=== PATIENT | male | born 1960 | race African-American/Black ===

== ENCOUNTER 2017-12-12 18:37 | Emergency (ER) | payer OTHER ==
--- NOTE | 2017-12-12 19:42 | RADIOLOGY REPORT (SQ) ---
EXAM DESCRIPTION: FINGER LEFT COMPLETED DATE/TIME: 12/12/2017 7:31 pm REASON FOR STUDY: finger laceration COMPARISON: None. NUMBER OF VIEWS: Three views. TECHNIQUE: AP, lateral, and oblique images acquired of the left second finger. LIMITATIONS: None. FINDINGS: MINERALIZATION: Normal. BONES: No acute fracture or dislocation. No worrisome bone lesions. SOFT TISSUES: No soft tissue swelling. No foreign body. OTHER: No other significant finding. IMPRESSION: NO RADIOGRAPHIC EVIDENCE OF ACUTE INJURY. COMMENT: SITE OF TRAUMA/COMPLAINT MARKED/STAMP COMPLETED: YES. TECHNICAL DOCUMENTATION: JOB ID: [id number] [employer]- All Rights Reserved Reading location - IP/workstation name: [email or web address]
[2017-12-12] MEDS ORDERED: DIPH/PERTUSS(ACELL)/TETANUS VAC/PF 0.5 ML SYR (>=10YO) IM ONE (20:13)
--- NOTE | 2017-12-12 20:14 | ER Document Report ---
ED Wound - General Chief Complaint: Laceration Stated Complaint: HAND LACERATION Time Seen by Provider: 12/12/17 19:09 Mode of Arrival: Ambulatory Information source: Patient Notes: Patient is a 57-year-old male who presents to the ER today for laceration to his left index finger at work prior to arrival after he was using a slicer to slice squash. Patient states that he accidentally got his finger in the slicer. Patient does not know when his last tetanus was. Patient admits that bleeding is only controlled with bandaging today. He denies any numbness or tingling, has full range of motion of the finger. TRAVEL OUTSIDE OF THE [place] IN LAST 30 DAYS: No - Related Data Allergies/Adverse Reactions: lisinopril [Lisinopril] Allergy (Verified 11/24/11 03:06) Past Medical History - General Information source: Patient - Social History Smoking Status: Unknown if Ever Smoked Family History: Reviewed & Not Pertinent - Past Medical History Cardiac Medical History: Reports: Hx Hypertension Review of Systems - Review of Systems Constitutional: No symptoms reported EENT: No symptoms reported Cardiovascular: No symptoms reported Respiratory: No symptoms reported Gastrointestinal: No symptoms reported Genitourinary: No symptoms reported Male Genitourinary: No symptoms reported Musculoskeletal: No symptoms reported Skin: See HPI Hematologic/Lymphatic: No symptoms reported Neurological/Psychological: No symptoms reported Physical Exam - Vital signs Vitals: Temp Pulse Resp BP Pulse Ox 99.1 F 105 H 20 153/85 H 90 L 12/12/17 18:45 12/12/17 18:45 12/12/17 18:45 12/12/17 18:45 12/12/17 18:45 - Notes Notes: PHYSICAL EXAMINATION: GENERAL: Well-appearing and in no acute distress. HEAD: Atraumatic, normocephalic. EYES: Pupils equal round and reactive to light, extraocular movements intact, sclera anicteric, conjunctiva are normal. NECK: Normal range of motion, supple without lymphadenopathy LUNGS: CTAB and equal. No wheezes rales or rhonchi. HEART: Regular rate and rhythm without murmurs EXTREMITIES: Normal range of motion, no pitting edema. No cyanosis. NEUROLOGICAL: Cranial nerves grossly intact. Normal sensory/motor exams. PSYCH: Normal mood, normal affect. SKIN: Warm, Dry, normal turgor, avulsion/shave laceration to the center of the nailbed of left index finger, sparing the base of the nailbed and the tip of the nail, sides of the nail, into tissue beneath the nailbed, minimal bleeding Course - Re-evaluation Re-evalutation: 12/12/17 23:59 X-ray negative for any acute pathology except for laceration. There is nothing to suture today as part of the nail and skin, tissue underneath the nail were just shaved off by the slicer, bleeding completely stopped after pressure dressing was kept on for approximately 20 minutes. Patient will be placed on antibiotic, was given tetanus today and advised to keep bandaged and clean, following up with his primary care provider. - Vital Signs Vital signs: Temp Pulse Resp BP Pulse Ox 98.3 F 96 20 171/96 H 97 12/12/17 20:32 12/12/17 20:32 12/12/17 18:45 12/12/17 20:32 12/12/17 20:32 Discharge - Discharge Clinical Impression: Nail avulsion, finger Qualifiers: Encounter type: initial encounter Qualified Code(s): S61.309A - Unspecified open wound of unspecified finger with damage to nail, initial encounter Condition: Stable Disposition: HOME, SELF-CARE Instructions: Non-Sutured Laceration ([facility]), Prophylactic Antibiotic ([facility]), Tetanus Immunization Given ([facility]) Additional Instructions: Return immediately for any new or worsening symptoms. Follow up with primary care provider, call tomorrow to make followup appointment. Please change the bandage at least once if not twice daily. Prescriptions: Cephalexin [Cephalexin 250 MG Tablet] 1 tab PO BID #10 tablet
[2017-12-12 20:33] VITALS: BP 171/96
== END 2017-12-12 20:42 | disposition home or self-care (01) ==
LOC: ER 18:37
DX: S61.211A Laceration without foreign body of left index finger without damage to nail, initial encounter (principal); W27.4XXA Contact with kitchen utensil, initial encounter; Z23 Encounter for immunization
CPT/HCPCS: 90471; 90715; 99283

== ENCOUNTER 2018-01-16 12:33 | Emergency (ER) | payer OTHER ==
--- NOTE | 2018-01-16 13:04 | ER Document Report ---
ED Skin Rash/Insect Bite/Abscs - General Chief Complaint: Abscess Stated Complaint: SWOLLEN FACE Time Seen by Provider: 01/16/18 13:04 Mode of Arrival: Ambulatory Information source: Patient Notes: 57-year-old male with a history of a cyst in front of his left ear developed increased swelling pain over the past 4 days. No fever or chills. No history of MRSA. TRAVEL OUTSIDE OF THE [place] IN LAST 30 DAYS: No - Related Data Allergies/Adverse Reactions: lisinopril [Lisinopril] Allergy (Verified 01/16/18 12:34) Past Medical History - General Information source: Patient - Social History Smoking Status: Never Smoker Chew tobacco use (# tins/day): No Drug Abuse: None Lives with: Family Family History: Reviewed & Not Pertinent Patient has suicidal ideation: No Patient has homicidal ideation: No - Past Medical History Cardiac Medical History: Reports: Hx Hypertension Renal/ Medical History: Denies: Hx Peritoneal Dialysis Surgical Hx: Negative Review of Systems - Review of Systems Constitutional: No symptoms reported EENT: No symptoms reported Cardiovascular: No symptoms reported Respiratory: No symptoms reported Gastrointestinal: No symptoms reported Genitourinary: No symptoms reported Male Genitourinary: No symptoms reported Musculoskeletal: No symptoms reported Skin: See HPI Hematologic/Lymphatic: No symptoms reported Neurological/Psychological: No symptoms reported Physical Exam - Vital signs Vitals: Temp Pulse Resp BP Pulse Ox 98.7 F 110 H 20 172/84 H 98 01/16/18 12:38 01/16/18 12:38 01/16/18 12:38 01/16/18 12:38 01/16/18 12:38 Interpretation: Normal - General General appearance: Appears well, Alert - HEENT Head: Normocephalic, Atraumatic Eyes: Normal Pupils: PERRL - Respiratory Respiratory status: No respiratory distress Chest status: Nontender Breath sounds: Normal Chest palpation: Normal - Cardiovascular Rhythm: Regular Heart sounds: Normal auscultation Murmur: No - Extremities General upper extremity: Normal inspection, Nontender, Normal color, Normal ROM , Normal temperature General lower extremity: Normal inspection, Nontender, Normal color, Normal ROM , Normal temperature, Normal weight bearing. No: Brielle's sign - Neurological Neuro grossly intact: Yes Cognition: Normal Orientation: AAOx4 Primo Coma Scale Eye Opening: Spontaneous Thorpe Coma Scale Verbal: Oriented Thorpe Coma Scale Motor: Obeys Commands Primo Coma Scale Total: 15 Speech: Normal Motor strength normal: LUE, RUE, LLE, RLE Sensory: Normal - Psychological Associated symptoms: Normal affect, Normal mood - Skin Skin Temperature: Warm Skin Moisture: Dry Skin Color: Normal Skin irregularity: Abscess - Left preauricular soft tissue, 1 cm fluctuance Course - Vital Signs Vital signs: Temp Pulse Resp BP Pulse Ox 98.7 F 90 16 161/85 H 99 01/16/18 12:38 01/16/18 14:00 01/16/18 14:00 01/16/18 14:00 01/16/18 14:00 Procedures - Incision and Drainage Left Face Time completed: 13:30 Type: Simple Anesthetic type: 1% Lidocaine mL's of anesthetic: 2 Blade size: 11 I&D procedure: Betadine prep applied, Other - Quarter inch packing in the evacuated abscess Incision Method: Incision made by scalpel Amount/type of drainage: large blood and sebaceous exudate Discharge - Discharge Clinical Impression: I and D facial abscess Condition: Good Disposition: HOME, SELF-CARE Instructions: Abscess ([facility]), Acetaminophen, Use of Rjve-Tno-Rjgongm Ibuprofen ( [facility]), Post Incision and Drainage, Trimethoprim-Sulfa ([facility]), Warm Packs ([facility]) Additional Instructions: warm compress Tylenol up to 4000 mg per day for pain [id number]-[id number] Motrin for pain Keep the packing in for 2 days Wash with soap and water after the packing is removed in the shower in 2 days Septra for 1 week Return to the emergency room for any increased increased pain swelling fever Prescriptions: Sulfamethoxazole/Trimethoprim [Sulfamethoxazole-Tmp Ds Tablet] 1 each PO BID # 14 tablet
[2018-01-16] MEDS ORDERED: IBUPROFEN 400 MG TABLET PO ONE (13:06)
[2018-01-16] MEDS ORDERED: ACETAMINOPHEN 325 MG TABLET PO ONE (13:06)
[2018-01-16] MEDS ORDERED: SULFAMETHOXAZOLE/TRIMETHOPRIM 800-160 MG TABLET PO ONE (13:06)
[2018-01-16 14:18] VITALS: BP 161/85
== END 2018-01-16 14:05 | disposition home or self-care (01) ==
LOC: ER 12:33
DX: L02.01 Cutaneous abscess of face (principal); I10 Essential (primary) hypertension; Z88.8 Allergy status to other drugs, medicaments and biological substances
CPT/HCPCS: 99283; 10060; J3490

== ENCOUNTER 2018-10-06 10:05 | Emergency (ER) | payer OTHER ==
--- NOTE | 2018-10-06 10:25 | ER Document Report ---
ED Medical Screen (RME) - General Chief Complaint: Shortness Of Breath Stated Complaint: ELEVATED HEART RATE/SHORT OF BREATH Time Seen by Provider: 10/06/18 10:20 TRAVEL OUTSIDE OF THE [place] IN LAST 30 DAYS: No - HPI Notes: 10/06/18 10:23 Patient is a 58-year-old male with a history of hypertension who presents emergency department complaining of intermittent shortness of breath over the past month that is worse when he is ambulating. Patient states that he is still eating and drinking without difficulty. He is urinating normally and having normal bowel movements. He was seen at the [facility] today that wanted him to have an evaluation due to having elevated blood pressure and heart rate around 110. Patient states he also has puffiness around his left eye which has been present for the past 1-2 weeks. Denies any prolonged immobilization, distance travel, recent surgery/trauma, personal cancer history, hormone use, or previous DVT/PE. Denies STALLWORTH, fever, neck pain, URI, CP, Abd pain, or rash. I have treated and performed a rapid initial assessment of this patient. A comprehensive ED assessment and evaluation of the patient, analysis of test results and completion of medical decision making process will be conducted by additional ED providers. PHYSICAL EXAMINATION: GENERAL: Well-appearing, well-nourished and in no acute distress. A&Ox4. Answers questions appropriately. LUNGS: Breath sounds clear to auscultation bilaterally and equal. No wheezes rales or rhonchi. HEART: Regular rate and rhythm without murmurs, rubs, gallops. Extremities: No cyanosis, clubbing, or edema b/l. No lower extremity asymmetry. Brielle negative bilaterally. NEUROLOGICAL: Normal speech, normal gait. PSYCH: Normal mood, normal affect. - Related Data Allergies/Adverse Reactions: lisinopril [Lisinopril] Allergy (Verified 01/16/18 12:34) Past Medical History - Past Medical History Cardiac Medical History: Reports: Hx Hypertension Renal/ Medical History: Denies: Hx Peritoneal Dialysis Physical Exam - Vital signs Vitals: Temp Pulse Resp BP Pulse Ox 98.0 F 109 H 20 159/85 H 98 10/06/18 10:17 10/06/18 10:17 10/06/18 10:17 10/06/18 10:17 10/06/18 10:17 Course - Vital Signs Vital signs: Temp Pulse Resp BP Pulse Ox 98.0 F 109 H 20 159/85 H 98 10/06/18 10:17 10/06/18 10:17 10/06/18 10:17 10/06/18 10:17 10/06/18 10:17
--- NOTE | 2018-10-06 10:48 | RADIOLOGY REPORT (SQ) ---
EXAM DESCRIPTION: CHEST SINGLE VIEW COMPLETED DATE/TIME: 10/06/2018 10:34 am REASON FOR STUDY: SOB COMPARISON: None. EXAM PARAMETERS: NUMBER OF VIEWS: One view. TECHNIQUE: Single frontal radiographic view of the chest acquired. RADIATION DOSE: NA LIMITATIONS: None. FINDINGS: LUNGS AND PLEURA: No opacities, masses or pneumothorax. No pleural effusion. MEDIASTINUM AND HILAR STRUCTURES: No masses. Contour normal. HEART AND VASCULAR STRUCTURES: Heart normal in size. Normal vasculature. BONES: No acute findings. HARDWARE: None in the chest. OTHER: Nipple shadow projected over the left lower lung zone. IMPRESSION: NO ACUTE RADIOGRAPHIC FINDING IN THE CHEST. TECHNICAL DOCUMENTATION: JOB ID: [id number] [employer]- All Rights Reserved Reading location - IP/workstation name: [email or web address]
[2018-10-06 10:58] LABS: ABSOLUTE BASOPHILS # (AUTO) 0.1 10^3/uL (0.0-0.2); ABSOLUTE LYMPHOCYTES (AUTO) 1.7 10^3/uL (0.5-4.7); ABSOLUTE MONOCYTES (AUTO) 0.8 10^3/uL (0.1-1.4); ABSOLUTE NEUT (AUTO) 7.1 10^3/uL (1.7-8.2); BASOPHILS % (AUTO) 0.8 % (0-2); EOSINOPHILS % (AUTO) 0.2 % (0-6); HEMATOCRIT 47.7 % (37.9-51.0); HEMOGLOBIN 15.8 g/dL (13.5-17.0); LYMPHOCYTES % (AUTO) 17.3 % (13-45); MEAN CORPUSCULAR HEMOGLOBIN 29.8 pg (27.0-33.4); MEAN CORPUSCULAR VOLUME 90 fl (80-97); MONOCYTES % (AUTO) 7.8 % (3-13); PLATELET COUNT 283 10^3/uL (150-450); RED BLOOD COUNT 5.29 10^6/uL (4.35-5.55); RED CELL DISTRIBUTION WIDTH 14.2 % (11.5-14.0); SEGMENTED NEUTROPHILS % (AUTO) 73.9 % (42-78); TOTAL CELLS COUNTED % (AUTO) 100 %; WHITE BLOOD COUNT 9.6 10^3/uL (4.0-10.5)
--- NOTE | 2018-10-06 11:07 | EKG REPORT ---
SEVERITY:- BORDERLINE ECG - SINUS TACHYCARDIA BORDERLINE INFERIOR Q WAVES BORDERLINE T ABNORMALITIES, LATERAL LEADS : Confirmed by: August Ruggiero 06-Oct-2018 11:07:17
[2018-10-06 11:19] LABS: ALANINE AMINOTRANSFERASE 27 U/L (21-72); ALBUMIN 4.9 g/dL (3.5-5.0); ALKALINE PHOSPHATASE 84 U/L (38-126); ANION GAP 11 (5-19); ASPARTATE AMINO TRANSFERASE 34 U/L (17-59); BILIRUBIN,DIRECT 0.4 mg/dL (0.0-0.4); BILIRUBIN,TOTAL 0.6 mg/dL (0.2-1.3); BLOOD UREA NITROGEN 9 mg/dL (7-20); CALCIUM 10.5 mg/dL (8.4-10.2); CARBON DIOXIDE 23 mmol/L (22-30); CHLORIDE 105 mmol/L (98-107); GLUCOSE 100 mg/dL (75-110); PHOSPHORUS 3.5 mg/dL (2.5-4.5); POTASSIUM 3.7 mmol/L (3.6-5.0); SODIUM 138.6 mmol/L (137-145); TOTAL PROTEIN 7.9 g/dL (6.3-8.2)
[2018-10-06 11:32] LABS: NT PRO BNP 41 pg/mL (5-900); TROPONIN I < 0.012 ng/mL
[2018-10-06] MEDS ORDERED: NORMAL SALINE 1000 ML 1,000 ML IV ONE (12:54)
[2018-10-06 15:19] VITALS: BP 158/85
--- NOTE | 2018-10-06 17:54 | ER Document Report ---
Entered by YSABEL BARROS SCRIBE 10/06/18 [id number] Acting as scribe for:JESSICA MARRERO DO ED General - General Chief Complaint: Shortness Of Breath Stated Complaint: ELEVATED HEART RATE/SHORT OF BREATH Time Seen by Provider: 10/06/18 10:20 [facility] Care Provider: [facility] [[facility]] - Follow up as needed Information source: Patient Notes: 58-year-old male that was sent in from the [place] [facility] in regards to periorbital edema along with exertional dyspnea. Patient states he was going to the [facility] today for a blood pressure recheck when they noticed this eye swelling. Patient states that he has noticed this eye swelling for the last x3 weeks. Patient has a history of angioedema several years ago but he was on lisinopril at that time which he is not currently taking. Patient states he has noticed that his shortness of breath seems to be on exertion. Patient denies any difficulty swallowing, leg swelling, chest pain, or pain around his eyes. TRAVEL OUTSIDE OF THE [place] IN LAST 30 DAYS: No - Related Data Allergies/Adverse Reactions: lisinopril [Lisinopril] Allergy (Verified 01/16/18 12:34) Past Medical History - General Information source: Patient - Social History Smoking Status: Current Every Day Smoker Cigarette use (# per day): Yes Chew tobacco use (# tins/day): No Frequency of alcohol use: Heavy - daily x3-4 beers Drug Abuse: None Lives with: Family Family History: Reviewed & Not Pertinent Patient has suicidal ideation: No Patient has homicidal ideation: No - Past Medical History Cardiac Medical History: Reports: Hx Hypertension Review of Systems - Review of Systems Constitutional: No symptoms reported EENT: See HPI, Other - eye swelling Cardiovascular: denies: Chest pain Respiratory: See HPI, Short of breath Gastrointestinal: No symptoms reported Genitourinary: No symptoms reported Male Genitourinary: No symptoms reported Musculoskeletal: denies: Leg swelling Skin: No symptoms reported Hematologic/Lymphatic: No symptoms reported Neurological/Psychological: No symptoms reported -: Yes All other systems reviewed and negative Physical Exam - Vital signs Vitals: Temp Pulse Resp BP Pulse Ox 98.0 F 109 H 20 159/85 H 98 10/06/18 10:17 10/06/18 10:17 10/06/18 10:17 10/06/18 10:17 10/06/18 10:17 - Notes Notes: PHYSICAL EXAM Bedside nurse monitoring interpretation: NSR with a rate of 109 per my interpretation. GENERAL: Alert, interacts well. No acute distress. HEAD: Normocephalic, atraumatic. EYES: Pupils equal, round, and reactive to light. Extraocular movements intact. Small amount of periorbital edema without erythema or fluctuance. ENT: Oral mucosa moist, tongue midline. No angioedema. NECK: Full range of motion. Supple. Trachea midline. LUNGS: Clear to auscultation bilaterally, no wheezes, rales, or rhonchi. No respiratory distress. HEART: Tachycardic, regular rhythm. No murmurs, gallops, or rubs. ABDOMEN: Soft, non-tender. Non-distended. Bowel sounds present in all 4 quadrants. No guarding, rigidity, or rebound. EXTREMITIES: Moves all 4 extremities spontaneously. No edema, radial and dorsalis pedis pulses 2/4 bilaterally. No cyanosis. NEUROLOGICAL: Alert and oriented x3. Normal speech. PSYCH: Normal affect, normal mood. SKIN: Warm and dry. Course - Re-evaluation Re-evalutation: 10/06/18 14:54 CBC unremarkable, d-dimer negative, CMP unremarkable with the exception of calcium which is only slightly elevated at 10.5, troponin negative x2, it went from completely undetectable at 0.0122 only minimally change at 0.013 which is still negative. ProBNP unremarkable at 41, TSH normal at 0.62. Chest x-ray shows no acute process. Patient swelling around his eyes he states has been unchanged for the past 3 weeks. It is very soft, there is no induration, there is no evidence of involvement of the lips, tongue or airway. I do not think this is angioedema as it only around his eyes rather than the airway. I also do not think it is angioedema because is been going on for so long. With his BUN and creatinine being completely normal despite the fact that he has not yet urinated for me in the emergency department I do not think patient has nephrotic syndrome causing the periorbital edema. I did discuss these laboratory findings and my conclusions with Dr. Mclain his primary care physician at the [place]. Dr. Mclain agrees to follow-up with the patient as an outpatient, she will put an order [facility] if this improves some of his periorbital edema, she will also arrange cardiology follow-up as an outpatient for exertional dyspnea. Patient has had mild persistent tachycardia while he has been here but again his d-dimer was normal. Patient's tachycardia worsens when somebody walks into the room and improves when they leave, the lowest his heart rate has gotten has been to 102. - Vital Signs Vital signs: Temp Pulse Resp BP Pulse Ox 98.0 F 109 H 20 158/85 H 96 10/06/18 10:17 10/06/18 10:17 10/06/18 15:01 10/06/18 15:01 10/06/18 15:01 - Laboratory Result Diagrams: 10/06/18 10:40 10/06/18 10:40 Laboratory results interpreted by me: 10/06/18 10/06/18 10:40 10:40 RDW 14.2 H Calcium 10.5 H - EKG Interpretation by Me Additional EKG results interpreted by me: 10/06/18 14:59 EKG shows sinus tachycardia at a rate of 109, no ST segment elevations or depressions, there are isolated nonspecific T wave inversions in aVL L T wave inversions in aVL, slight ST segment depression in V6, no elevations, no contiguous changes, good R wave progression, left ventricular hypertrophy per my interpretation. Discharge - Discharge Clinical Impression: Dyspnea on exertion, Sinus tachycardia, Periorbital edema Condition: Stable Disposition: HOME, SELF-CARE Additional Instructions: Today we did not find any signs of a heart attack. You will need to follow-up with [facility] as an outpatient for a stress test to further figure out why you are short of breath when you walk around. We did not see any signs of a blood clot to your lungs. I have discussed this with Dr. Mclain and she will get you set up with a log chi[facility] for outpatient follow-up. She would also like you to start a daily antiallergy medication such as Claritin. She is going to add this to your order so it will be delivered to you in the mail. Until it shows up in the mail you may buy this [id number]. Please return if you develop any swelling to your mouth, lips, tongue, difficulty breathing, chest pain or any new or concerning symptoms. Referrals: [facility] [Primary Care Provider] - Follow up as needed I personally performed the services described in the documentation, reviewed and edited the documentation which was dictated to the scribe in my presence, and it accurately records my words and actions.
== END 2018-10-06 15:28 | disposition home or self-care (01) ==
LOC: ER 10:05
DX: R06.09 Other forms of dyspnea (principal); R00.0 Tachycardia, unspecified; I10 Essential (primary) hypertension; R60.9 Edema, unspecified; F17.210 Nicotine dependence, cigarettes, uncomplicated
CPT/HCPCS: 93005; 99285; 96360; 96361; 36415; 83735; 84100; 84443; 85025; 80053; 84484; 85379; 83880; 71045; 93010; J7030

== ENCOUNTER 2019-02-10 14:47 | Inpatient (IN) | payer OTHER ==
[2019-02-10] MEDS ORDERED: MORPHINE SULFATE 10 MG/ML INJ IV ONE (15:26)
[2019-02-10] MEDS ORDERED: ONDANSETRON HCL INJ/PF 4 MG/2 ML SDV IV ONE (15:26)
--- NOTE | 2019-02-10 15:30 | RADIOLOGY REPORT (SQ) ---
EXAM DESCRIPTION: TIBIA FIBULA RIGHT COMPLETED DATE/TIME: 02/10/2019 3:17 pm REASON FOR STUDY: unable to bear weight COMPARISON: None. NUMBER OF VIEWS: Two views. TECHNIQUE: Two radiographic images acquired of the right tibia and fibula to include the knee and an kle in at least one projection. LIMITATIONS: None. FINDINGS: MINERALIZATION: Normal. BONES: Spiral fractures of the distal tibia and distal fibula. SOFT TISSUES: No obvious swelling or foreign body. OTHER: No other significant finding. IMPRESSION: Distal tibial and fibular fractures. TECHNICAL DOCUMENTATION: JOB ID: [id number] [employer]- All Rights Reserved Reading location - IP/workstation name: [email or web address]
[2019-02-10] MEDS ORDERED: ONDANSETRON HCL INJ/PF 4 MG/2 ML SDV IV PRN (16:18)
--- NOTE | 2019-02-10 16:18 | PDOC H&P ---
History of Present Illness Admission Date/PCP: [facility] History of Present Illness: ROSANA MATSON is a 59 year old plaque male patient with past medical history of hypertension and chronic back pain presented after he involved accidental fall when his right leg stepped into a hole. Patient is in excruciating pain. His plain x-ray reported as undisplaced closed distal tibial and fibular fracture. No labs to review. Patient reported she drinks 3 to 4 cans of beer on daily basis. Is everyday smoker. He does not have any fever chills chest pain palpitation or diaphoresis. Does not have any dizziness blurry of vision or seizure activity. Dr. Garcia has been consulted by the ER attending. Past Medical History Cardiac Medical History: Reports: Hypertension Social History Smoking Status: Current Every Day Smoker Frequency of Alcohol Use: None Hx Recreational Drug Use: No - Advance Directive Resuscitation Status: Full Code Family History Family History: Reviewed & Not Pertinent Parental Family History Reviewed: Yes Children Family History Reviewed: Yes Sibling(s) Family History Reviewed.: Yes Medication/Allergy Home Medications: Amlodipine Besylate [Norvasc 5 mg Tablet] 5 mg PO DAILY 11/24/11 Allopurinol [Zyloprim 300 mg Tablet] 300 mg PO DAILY 01/16/18 Cholecalciferol (Vitamin D3) [Cholecalciferol] 1 gm MC BID 01/16/18 Colchicine [Colchicine 0.6 mg Tablet] 0.6 mg PO DAILY 01/16/18 Cyclobenzaprine HCl 10 mg PO TID PRN 01/16/18 Gabapentin 300 mg PO BID 01/16/18 Hydralazine HCl 50 mg PO TID 01/16/18 Melatonin 5 mg PO PRN PRN 01/16/18 Methocarbamol 500 mg PO TID PRN 01/16/18 Naproxen 500 mg PO DAILY 01/16/18 Sulfamethoxazole/Trimethoprim [Sulfamethoxazole-Tmp Ds Tablet] 1 each PO BID #14 tablet 01/16/18 Allergies/Adverse Reactions: lisinopril [Lisinopril] Allergy (Verified 01/16/18 12:34) Review of Systems Constitutional: ABSENT: chills, fever(s), headache(s), weight gain, weight loss Eyes: ABSENT: visual disturbances Ears: ABSENT: hearing changes Cardiovascular: ABSENT: chest pain, dyspnea on exertion, edema, orthropnea, palpitations Respiratory: ABSENT: cough, hemoptysis Gastrointestinal: ABSENT: abdominal pain, constipation, diarrhea, hematemesis, hematochezia, nausea, vomiting Genitourinary: ABSENT: dysuria, hematuria Musculoskeletal: PRESENT: other - Excruciating right leg pain Integumentary: ABSENT: rash, wounds Neurological: ABSENT: abnormal gait, abnormal speech, confusion, dizziness, focal weakness, syncope Psychiatric: ABSENT: anxiety, depression, homidical ideation, suicidal ideation Endocrine: ABSENT: cold intolerance, heat intolerance, polydipsia, polyuria Hematologic/Lymphatic: ABSENT: easy bleeding, easy bruising Physical Exam Vital Signs: Temp Pulse Resp BP Pulse Ox 97.7 F 73 20 136/78 H 100 02/10/19 15:16 02/10/19 15:16 02/10/19 15:16 02/10/19 15:16 02/10/19 15:16 Intake & Output 02/09/19 02/10/19 02/11/19 06:59 06:59 06:59 Weight 77.111 kg General appearance: PRESENT: mild distress Head exam: PRESENT: atraumatic Mouth exam: PRESENT: moist Neck exam: ABSENT: carotid bruit, JVD, lymphadenopathy, thyromegaly Respiratory exam: PRESENT: clear to auscultation edmond. ABSENT: rales, rhonchi, wheezes Cardiovascular exam: PRESENT: RRR. ABSENT: diastolic murmur, rubs, systolic murmur GI/Abdominal exam: PRESENT: normal bowel sounds, soft. ABSENT: distended, guarding, mass, organolmegaly, rebound, tenderness Neurological exam: PRESENT: alert, awake, oriented to person, oriented to place Results Impressions: Tibia/Fibula X-Ray 02/10/19 15:04 IMPRESSION: Distal tibial and fibular fractures. Assessment and Plan - Diagnosis (1) Right tibia and fibular fracture Is this a current diagnosis for this admission?: Yes Plan: Following mechanical fall. Dr. Garcia has been consulted. I will manage his pain with IV morphine sulfate (2) Hypertension Qualifiers: Hypertension type: essential hypertension Qualified Code(s): I10 - Essential (primary) hypertension Is this a current diagnosis for this admission?: Yes Plan: Reportedly patient has allergy to lisinopril. We will start him on metoprolol and hydrochlorothiazide. - Inpatient Certification Medical Necessity: Need for Pain Control, Risk of Complication if Not Cared For in Hospital
[2019-02-10] MEDS ORDERED: LORAZEPAM INJ 2 MG/1 ML VIAL IV PRN (16:25)
--- NOTE | 2019-02-10 16:25 | RADIOLOGY REPORT (SQ) ---
EXAM DESCRIPTION: CHEST SINGLE VIEW COMPLETED DATE/TIME: 02/10/2019 4:00 pm REASON FOR STUDY: preop COMPARISON: 10/06/2018. EXAM PARAMETERS: NUMBER OF VIEWS: One view. TECHNIQUE: Single frontal radiographic view of the chest acquired. RADIATION DOSE: NA LIMITATIONS: None. FINDINGS: LUNGS AND PLEURA: No opacities, masses or pneumothorax. No pleural effusion. MEDIASTINUM AND HILAR STRUCTURES: No masses. Contour normal. HEART AND VASCULAR STRUCTURES: Heart normal in size. Normal vasculature. BONES: No acute findings. HARDWARE: None in the chest. OTHER: No other significant finding. IMPRESSION: NO ACUTE RADIOGRAPHIC FINDING IN THE CHEST. TECHNICAL DOCUMENTATION: JOB ID: [id number] [employer]- All Rights Reserved Reading location - IP/workstation name: [email or web address]
--- NOTE | 2019-02-10 16:26 | RADIOLOGY REPORT (SQ) ---
EXAM DESCRIPTION: KNEE RIGHT 2 VIEWS COMPLETED DATE/TIME: 02/10/2019 4:00 pm REASON FOR STUDY: fall pain COMPARISON: None. NUMBER OF VIEWS: Two views. TECHNIQUE: AP and lateral radiographic images acquired of the right knee. LIMITATIONS: None. FINDINGS: MINERALIZATION: Normal. BONES: Comminuted oblique fracture of the proximal fibula. No worrisome bone lesions. JOINT: No effusion. Mild medial joint space narrowing with small osteophytes. SOFT TISSUES: No soft tissue swelling. No radio-opaque foreign body. OTHER: No other significant finding. IMPRESSION: COMMINUTED OBLIQUE FRACTURE OF THE PROXIMAL FIBULA. TECHNICAL DOCUMENTATION: JOB ID: [id number] [employer]- All Rights Reserved Reading location - IP/workstation name: [email or web address]
[2019-02-10 16:49] LABS: ABSOLUTE BASOPHILS # (AUTO) 0.1 10^3/uL (0.0-0.2); ABSOLUTE EOSINOPHILS # (AUTO) 0.1 10^3/uL (0.0-0.6); ABSOLUTE LYMPHOCYTES (AUTO) 1.4 10^3/uL (0.5-4.7); ABSOLUTE MONOCYTES (AUTO) 0.7 10^3/uL (0.1-1.4); ABSOLUTE NEUT (AUTO) 8.5 10^3/uL (1.7-8.2); BASOPHILS % (AUTO) 0.6 % (0-2); EOSINOPHILS % (AUTO) 1.4 % (0-6); HEMATOCRIT 43.4 % (37.9-51.0); HEMOGLOBIN 14.2 g/dL (13.5-17.0); LYMPHOCYTES % (AUTO) 12.8 % (13-45); MEAN CORPUSCULAR HEMOGLOBIN 29.7 pg (27.0-33.4); MEAN CORPUSCULAR HGB CONC 32.8 g/dL (32.0-36.0); MEAN CORPUSCULAR VOLUME 90 fl (80-97); MONOCYTES % (AUTO) 6.8 % (3-13); PLATELET COUNT 210 10^3/uL (150-450); RED CELL DISTRIBUTION WIDTH 14.3 % (11.5-14.0); SEGMENTED NEUTROPHILS % (AUTO) 78.4 % (42-78); TOTAL CELLS COUNTED % (AUTO) 100 %; WHITE BLOOD COUNT 10.9 10^3/uL (4.0-10.5)
[2019-02-10 17:02] LABS: INTERNATIONAL RATION (INR) 0.95; PROTHROMBIN TIME 12.7 SEC (11.4-15.4)
[2019-02-10 17:13] LABS: ALBUMIN 4.4 g/dL (3.5-5.0); ALKALINE PHOSPHATASE 60 U/L (38-126); ANION GAP 16 (5-19); ASPARTATE AMINO TRANSFERASE 33 U/L (17-59); BILIRUBIN,DIRECT 0.4 mg/dL (0.0-0.4); BILIRUBIN,TOTAL 0.6 mg/dL (0.2-1.3); BLOOD UREA NITROGEN 4 mg/dL (7-20); CALCIUM 9.7 mg/dL (8.4-10.2); CARBON DIOXIDE 21 mmol/L (22-30); CHLORIDE 99 mmol/L (98-107); GLUCOSE 101 mg/dL (75-110); POTASSIUM 3.6 mmol/L (3.6-5.0)
[2019-02-10 17:35] LABS: PARTIAL THROMBOPLASTIN TIME 20.2 SEC (23.5-35.8)
[2019-02-10] MEDS ORDERED: HYDROMORPHONE HCL INJ/PF 2 MG/ML AMPULE IV ONE (19:00)
[2019-02-10] MEDS ORDERED: NORMAL SALINE 1000 ML 1,000 ML IV ONE (19:01)
[2019-02-10] MEDS: ENOXAPARIN SODIUM INJ 40 MG/0.4 ML DISP.SYRIN SUBCUT SCH (19:43)
[2019-02-10] MEDS: MORPHINE SULFATE 10 MG/ML INJ IV PRN (21:18)
[2019-02-10] MEDS: FAMOTIDINE 20 MG TABLET PO SCH (23:39)
[2019-02-11] MEDS: RINGERS SOLUTION,LACTATED 1,000 ML IV PRN ×2 (02:17→18:33)
[2019-02-11] MEDS: MORPHINE SULFATE 10 MG/ML INJ IV PRN ×2 (02:19→05:56)
[2019-02-11] MEDS ORDERED: LABETALOL HCL INJ 20 MG/4 ML DISP.SYRIN IV PRN (06:25)
[2019-02-11] MEDS ORDERED: HYDROMORPHONE HCL INJ/PF 2 MG/ML AMPULE ONE (07:38)
[2019-02-11] MEDS ORDERED: HYDRALAZINE HCL 50 MG TABLET PO SCH (10:00)
[2019-02-11] MEDS: THIAMINE HCL 100 MG TABLET PO SCH (10:04)
[2019-02-11] MEDS: ATENOLOL 50 MG TABLET PO SCH (10:04)
[2019-02-11] MEDS: FOLIC ACID 1 MG TABLET PO SCH (10:04)
[2019-02-11] MEDS: AMLODIPINE BESYLATE 10 MG TABLET PO SCH (10:04)
[2019-02-11] MEDS: FAMOTIDINE 20 MG TABLET PO SCH ×2 (10:04→21:21)
--- NOTE | 2019-02-11 10:33 | EKG REPORT ---
SEVERITY:- ABNORMAL ECG - SINUS RHYTHM LEFT ATRIAL ABNORMALITY : Confirmed by: August Ruggiero 11-Feb-2019 10:33:18
--- NOTE | 2019-02-11 11:14 | PDOC PROGRESS REPORT ---
Subjective Progress Note for:: 02/11/19 Subjective:: ROSANA MATSON is a 59 year old plaque male patient with past medical history of hypertension and chronic back pain presented after he involved accidental fall when his right leg stepped into a hole. Patient is in excruciating pain. His plain x-ray reported as undisplaced closed distal tibial and fibular fracture. No labs to review. Patient reported she drinks 3 to 4 cans of beer on daily basis. Is everyday smoker. He does not have any fever chills chest pain palpitation or diaphoresis. Does not have any dizziness blurry of vision or seizure activity. Dr. Garcia has been consulted by the ER attending. 02/10/2019: I seen patient resting in bed comfortably. His pain is controlled with morphine sulfate and Percocet. His vital signs and blood work is u nremarkable. Definitive management per Dr. Garcia. Reason For Visit: CLOSED NONDISPLACED DISTAL TIBIAL AND FIBULAR Physical Exam Vital Signs: Temp Pulse Resp BP Pulse Ox 98.5 F 88 14 154/84 H 97 02/11/19 08:00 02/11/19 08:00 02/11/19 08:00 02/11/19 08:00 02/11/19 08:00 Intake & Output 02/10/19 02/11/19 02/12/19 06:59 06:59 06:59 Intake Total 1000 Balance 1000 Weight 80 kg General appearance: PRESENT: no acute distress Eye exam: PRESENT: conjunctiva pink Mouth exam: PRESENT: moist, tongue midline Neck exam: ABSENT: carotid bruit, JVD, lymphadenopathy, thyromegaly Respiratory exam: PRESENT: clear to auscultation edmond. ABSENT: rales, rhonchi, wheezes Cardiovascular exam: PRESENT: RRR. ABSENT: diastolic murmur, rubs, systolic murmur GI/Abdominal exam: PRESENT: normal bowel sounds, soft. ABSENT: distended, guarding, mass, organolmegaly, rebound, tenderness Neurological exam: PRESENT: alert, awake, oriented to person, oriented to place, oriented to time, oriented to situation Results Laboratory Results: 02/10/19 16:29 02/10/19 16:29 02/10/19 02/10/19 02/10/19 16:29 16:29 16:29 WBC 10.9 H RBC 4.80 Hgb 14.2 Hct 43.4 MCV 90 MCH 29.7 MCHC 32.8 RDW 14.3 H Plt Count 210 Seg Neutrophils % 78.4 H Lymphocytes % 12.8 L Monocytes % 6.8 Eosinophils % 1.4 Basophils % 0.6 Absolute Neutrophils 8.5 H Absolute Lymphocytes 1.4 Absolute Monocytes 0.7 Absolute Eosinophils 0.1 Absolute Basophils 0.1 Sodium 136.2 L Potassium 3.6 Chloride 99 Carbon Dioxide 21 L Anion Gap 16 BUN 4 L Creatinine 0.78 Est GFR ( Amer) > 60 Est GFR (Non-Af Amer) > 60 Glucose 101 Calcium 9.7 Total Bilirubin 0.6 AST 33 Alkaline Phosphatase 60 Total Protein 7.0 Albumin 4.4 Blood Type O NEGATIVE Antibody Screen NEGATIVE Impressions: Chest X-Ray 02/10/19 00:00 IMPRESSION: NO ACUTE RADIOGRAPHIC FINDING IN THE CHEST. Tibia/Fibula X-Ray 02/10/19 15:04 IMPRESSION: Distal tibial and fibular fractures. Knee X-Ray 02/10/19 15:34 IMPRESSION: COMMINUTED OBLIQUE FRACTURE OF THE PROXIMAL FIBULA. Assessment and Plan - Diagnosis (1) Right tibia and fibular fracture Is this a current diagnosis for this admission?: Yes Plan: Following mechanical fall. Dr. Garcia has been consulted. I will manage his pain with IV morphine sulfate (2) Hypertension Qualifiers: Hypertension type: essential hypertension Qualified Code(s): I10 - Essential (primary) hypertension Is this a current diagnosis for this admission?: Yes Plan: Reportedly patient has allergy to lisinopril. We will start him on metoprolol and hydrochlorothiazide.
[2019-02-11] MEDS: HYDRALAZINE HCL 50 MG TABLET PO SCH ×2 (14:12→21:21)
[2019-02-11] MEDS: ENOXAPARIN SODIUM INJ 40 MG/0.4 ML DISP.SYRIN SUBCUT SCH (14:12)
[2019-02-11] MEDS: HYDROMORPHONE HCL INJ/PF 2 MG/ML AMPULE IV PRN ×3 (14:15→22:47)
--- NOTE | 2019-02-11 16:36 | ER Document Report ---
Entered by YSABEL BARROS SCRIBE 02/10/19 1509 Acting as scribe for:CAROL TERESA DO ED Extremity Problem, Lower - General Stated Complaint: ANKLE PAIN Time Seen by Provider: 02/10/19 15:05 Information source: Patient Notes: Patient is a 59-year-old male that presents to the emergency department today with complaints of right lower extremity pain resulting from a fall that occurred at home just prior to arrival. Patient states that he was walking an umbrella outside for the [employer] workers at his house when he stepped in a hole on his deck causing his leg to twist. Patient complains of right knee pain, right ankle pain, and right lower leg pain. Patient denies hitting his head during the fall. Patient denies any back or neck pain. TRAVEL OUTSIDE OF THE [place] IN LAST 30 DAYS: No - Related Data Allergies/Adverse Reactions: lisinopril [Lisinopril] Allergy (Verified 01/16/18 12:34) Past Medical History - General Information source: Patient, COUNTS INCLUDE 234 BEDS AT THE [facility] Records - Social History Smoking Status: Current Every Day Smoker Cigarette use (# per day): Yes Frequency of alcohol use: Heavy Drug Abuse: None Lives with: Family Family History: Reviewed & Not Pertinent - Past Medical History Cardiac Medical History: Reports: Hx Hypertension Renal/ Medical History: Denies: Hx Peritoneal Dialysis Review of Systems - Review of Systems Constitutional: No symptoms reported EENT: No symptoms reported Cardiovascular: No symptoms reported Respiratory: No symptoms reported Gastrointestinal: No symptoms reported Genitourinary: No symptoms reported Male Genitourinary: No symptoms reported Musculoskeletal: See HPI, Joint pain - RLE. denies: Back pain, Neck pain Skin: No symptoms reported Hematologic/Lymphatic: No symptoms reported Neurological/Psychological: No symptoms reported -: Yes All other systems reviewed and negative Physical Exam - Vital signs Vitals: Temp Pulse Resp BP Pulse Ox 97.7 F 73 20 136/78 H 100 02/10/19 15:16 02/10/19 15:16 02/10/19 15:16 02/10/19 15:16 02/10/19 15:16 Interpretation: Normal - General General appearance: Alert, Other - Appears uncomfortable In distress: Mild - HEENT Head: Normocephalic, Atraumatic Eyes: Normal Pupils: PERRL - Respiratory Respiratory status: No respiratory distress Chest status: Nontender Breath sounds: Normal Chest palpation: Normal - Cardiovascular Rhythm: Regular Heart sounds: Normal auscultation Murmur: No - Abdominal Inspection: Normal Distension: No distension Bowel sounds: Normal Tenderness: Nontender Organomegaly: No organomegaly - Back Back: Normal, Nontender - Extremities General upper extremity: Normal inspection, Nontender, Normal color, Normal ROM, Normal temperature General lower extremity: Tender, Normal color, Normal temperature Shoulder: Normal Arm: Normal Elbow: Normal Forearm: Normal Wrist: Normal Hand: Normal Hip: Normal Thigh: Normal Knee: Tender, Pain with ROM Ankle: Nontender, Limited ROM Notes: Left lower extremity within normal limits. Right lower extremity with tenderness to palpation over lateral right ankle, mid tibia, diffusely over right knee. Pulses intact. Able to move toes. Sensation intact throughout. Excellent capillary refill throughout. - Neurological Neuro grossly intact: Yes Cognition: Normal Orientation: AAOx4 [place] Coma Scale Eye Opening: Spontaneous [place] Coma Scale Verbal: Oriented Primo Coma Scale Motor: Obeys Commands Primo Coma Scale Total: 15 Speech: Normal Cranial nerves: Normal Motor strength normal: LUE, RUE, LLE Additional motor exam normals: Equal first sampler Sensory: Normal - Psychological Associated symptoms: Normal affect, Normal mood - Skin Skin Temperature: Warm Skin Moisture: Dry Skin Color: Normal Course - Re-evaluation Re-evalutation: 02/10/19 15:[address] Garcia who agrees to see the patient in consult 02/10/19 15:45 Placed call to hospitalist for admission 02/10/19 15:50 Dr. Arambula agrees to admit the patient to his service Patient is a 59-year-old male who was walking outside and put his right leg into a hole by mistake. Patient comes in complaining of severe right lower extremity pain. He is neurovascularly intact. X-rays show the patient has a distal right fibula fracture, spiral mid tibia fracture, and proximal tibia f racture, consistent with Maisonneuve pattern. I have contacted the orthopedic doctor, Dr. Garcia who will see the patient in consult. I have spoken to the hospitalist service regarding this patient. Patient has no other injuries and is agreeable to admission. He has been warned of the signs and symptoms of compartment syndrome such as paresthesias, cold feeling, increase of pain. Stable at the time of admission to the hospital service. - Vital Signs Vital signs: Temp Pulse Resp BP Pulse Ox 98.5 F 85 13 159/89 H 96 02/11/19 11:38 02/11/19 11:38 02/11/19 11:38 02/11/19 11:38 02/11/19 11:38 - Laboratory Result Diagrams: 02/10/19 16:29 02/10/19 16:29 Laboratory results interpreted by me: 02/10/19 02/10/19 02/10/19 16:29 16:29 16:29 WBC 10.9 H RDW 14.3 H Seg Neutrophils % 78.4 H Lymphocytes % 12.8 L Absolute Neutrophils 8.5 H APTT 20.2 L Sodium 136.2 L Carbon Dioxide 21 L BUN 4 L Procedures - Immobilization Right Leg Pre-Proc Neuro Vasc Exam: Normal Immobilizer type: Long leg posterior Performed by: PCT Post-Proc Neuro Vasc Exam: Normal Alignment checked and good: Yes Critical Care Note - Critical Care Note Total time excluding time spent on procedures (mins): 35 - Evaluation and management of traumatic leg injury, coordination with specialist, coronation of admission, multiple re-evaluations, counseling of patient. Discharge - Discharge Clinical Impression: Right tibia and fibular fracture Condition: Stable Disposition: ADMITTED INPATIENT Admitting Provider: Tyesha (Hospitalist) Unit Admitted: Medical Floor Scribe Attestation: 02/11/19 16:32 I personally performed the services described in the documentation, reviewed and edited the documentation which was dictated to the scribe in my presence, and it accurately records my words and actions. I personally performed the services described in the documentation, reviewed and edited the documentation which was dictated to the scribe in my presence, and it accurately records my words and actions.
[2019-02-12] MEDS: RINGERS SOLUTION,LACTATED 1,000 ML IV PRN ×2 (00:29→14:07)
[2019-02-12] MEDS: HYDRALAZINE HCL 50 MG TABLET PO SCH ×3 (06:17→21:03)
[2019-02-12] MEDS: FOLIC ACID 1 MG TABLET PO SCH (09:40)
[2019-02-12] MEDS: THIAMINE HCL 100 MG TABLET PO SCH (09:40)
[2019-02-12] MEDS: ATENOLOL 50 MG TABLET PO SCH (09:40)
[2019-02-12] MEDS: FAMOTIDINE 20 MG TABLET PO SCH ×2 (09:40→21:03)
[2019-02-12] MEDS: ENOXAPARIN SODIUM INJ 40 MG/0.4 ML DISP.SYRIN SUBCUT SCH (09:41)
[2019-02-12] MEDS: AMLODIPINE BESYLATE 10 MG TABLET PO SCH (09:41)
[2019-02-12] MEDS: HYDROMORPHONE HCL INJ/PF 2 MG/ML AMPULE IV PRN ×3 (10:52→19:49)
--- NOTE | 2019-02-12 12:46 | PDOC PROGRESS REPORT ---
Subjective Progress Note for:: 02/12/19 Subjective:: ROSANA MATSON is a 59 year old plaque male patient with past medical history of hypertension and chronic back pain presented after he involved accidental fall when his right leg stepped into a hole. Patient is in excruciating pain. His plain x-ray reported as undisplaced closed distal tibial and fibular fracture. No labs to review. Patient reported she drinks 3 to 4 cans of beer on daily basis. Is everyday smoker. He does not have any fever chills chest pain palpitation or diaphoresis. Does not have any dizziness blurry of vision or seizure activity. Dr. Garcia has been consulted by the ER attending. 02/10/2019: I seen patient resting in bed comfortably. His pain is controlled with morphine sulfate and Percocet. His vital signs and blood work is u nremarkable. Definitive management per Dr. Garcia. 02/12/2019: The patient reports this is pain is well controlled. Possibly he will have procedure tomorrow. Reason For Visit: CLOSED NONDISPLACED DISTAL TIBIAL AND FIBULAR Physical Exam Vital Signs: Temp Pulse Resp BP Pulse Ox 100.4 F 111 H 17 152/88 H 95 02/12/19 11:40 02/12/19 11:40 02/12/19 11:40 02/12/19 11:40 02/12/19 11:40 Intake & Output 02/11/19 02/12/19 02/13/19 06:59 06:59 06:59 Intake Total 1000 2462 Output Total 400 500 Balance 600 1962 Weight 80 kg 80 kg General appearance: PRESENT: no acute distress Respiratory exam: PRESENT: clear to auscultation edmond. ABSENT: rales, rhonchi, wheezes Cardiovascular exam: PRESENT: RRR. ABSENT: diastolic murmur, rubs, systolic murmur Neurological exam: PRESENT: alert, awake, oriented to person, oriented to place, oriented to time, oriented to situation Results Laboratory Results: 02/10/19 16:29 02/10/19 16:29 Impressions: Chest X-Ray 02/10/19 00:00 IMPRESSION: NO ACUTE RADIOGRAPHIC FINDING IN THE CHEST. Tibia/Fibula X-Ray 02/10/19 15:04 IMPRESSION: Distal tibial and fibular fractures. Knee X-Ray 08/16/19 15:34 IMPRESSION: COMMINUTED OBLIQUE FRACTURE OF THE PROXIMAL FIBULA. Assessment and Plan - Diagnosis (1) Right tibia and fibular fracture Is this a current diagnosis for this admission?: Yes Plan: Following mechanical fall. Dr. Garcia has been consulted. I will manage his pain with IV morphine sulfate (2) Hypertension Qualifiers: Hypertension type: essential hypertension Qualified Code(s): I10 - Essential (primary) hypertension Is this a current diagnosis for this admission?: Yes Plan: Reportedly patient has allergy to lisinopril. We will start him on metoprolol and hydrochlorothiazide.
[2019-02-13] MEDS: HYDROMORPHONE HCL INJ/PF 2 MG/ML AMPULE IV PRN ×5 (00:22→20:12)
[2019-02-13] MEDS: RINGERS SOLUTION,LACTATED 1,000 ML IV PRN ×2 (00:24→09:43)
[2019-02-13] MEDS: HYDRALAZINE HCL 50 MG TABLET PO SCH ×3 (05:07→21:07)
[2019-02-13] MEDS: THIAMINE HCL 100 MG TABLET PO SCH (10:29)
[2019-02-13] MEDS: FOLIC ACID 1 MG TABLET PO SCH (10:29)
[2019-02-13] MEDS: FAMOTIDINE 20 MG TABLET PO SCH ×2 (10:29→21:07)
[2019-02-13] MEDS: ATENOLOL 50 MG TABLET PO SCH (10:42)
[2019-02-13] MEDS: AMLODIPINE BESYLATE 10 MG TABLET PO SCH (10:42)
[2019-02-13] MEDS: ENOXAPARIN SODIUM INJ 40 MG/0.4 ML DISP.SYRIN SUBCUT SCH (11:00)
--- NOTE | 2019-02-13 13:41 | PDOC PROGRESS REPORT ---
Subjective Progress Note for:: 02/13/19 Subjective:: ROSANA MATSON is a 59 year old plaque male patient with past medical history of hypertension and chronic back pain presented after he involved accidental fall when his right leg stepped into a hole. Patient is in excruciating pain. His plain x-ray reported as undisplaced closed distal tibial and fibular fracture. No labs to review. Patient reported she drinks 3 to 4 cans of beer on daily basis. Is everyday smoker. He does not have any fever chills chest pain palpitation or diaphoresis. Does not have any dizziness blurry of vision or seizure activity. Dr. Garcia has been consulted by the ER attending. 02/10/2019: I seen patient resting in bed comfortably. His pain is controlled with morphine sulfate and Percocet. His vital signs and blood work is u nremarkable. Definitive management per Dr. Garcia. 02/12/2019: The patient reports this is pain is well controlled. Possibly he will have procedure tomorrow. 03/16/2019: Patient seen resting in bed comfortably. His pain is adequately controlled with the current regimen. Patient is going to be taken to the OR for orthopedic procedure. Reason For Visit: CLOSED NONDISPLACED DISTAL TIBIAL AND FIBULAR Physical Exam Vital Signs: Temp Pulse Resp BP Pulse Ox 98.6 F 100 14 141/77 H 94 02/13/19 12:00 02/13/19 12:00 02/13/19 12:00 02/13/19 12:00 02/13/19 12:00 Intake & Output 02/12/19 02/13/19 02/14/19 06:59 06:59 06:59 Intake Total 2462 2120 1000 Output Total 500 1550 Balance 9935 859 9598 Weight 80 kg General appearance: PRESENT: no acute distress Respiratory exam: PRESENT: clear to auscultation edmond. ABSENT: rales, rhonchi, wheezes Cardiovascular exam: PRESENT: RRR. ABSENT: diastolic murmur, rubs, systolic murmur Neurological exam: PRESENT: alert, awake, oriented to person, oriented to place, oriented to time, oriented to situation Results Laboratory Results: 02/10/19 16:29 02/10/19 16:29 Impressions: Chest X-Ray 02/10/19 00:00 IMPRESSION: NO ACUTE RADIOGRAPHIC FINDING IN THE CHEST. Tibia/Fibula X-Ray 02/10/19 15:04 IMPRESSION: Distal tibial and fibular fractures. Knee X-Ray 02/10/19 15:34 IMPRESSION: COMMINUTED OBLIQUE FRACTURE OF THE PROXIMAL FIBULA. Assessment and Plan - Diagnosis (1) Right tibia and fibular fracture Is this a current diagnosis for this admission?: Yes Plan: Patient scheduled for procedure this morning. (2) Hypertension Qualifiers: Hypertension type: essential hypertension Qualified Code(s): I10 - Essenti al (primary) hypertension Is this a current diagnosis for this admission?: Yes Plan: Reportedly patient has allergy to lisinopril. We will start him on metoprolol and hydrochlorothiazide.
[2019-02-13] MEDS ORDERED: CEFAZOLIN INJ 1 GM VIAL ONE (15:49)
[2019-02-13] MEDS ORDERED: MIDAZOLAM 2 MG/2 ML INJ ONE (16:20)
[2019-02-13] MEDS ORDERED: PROPOFOL INJ 200 MG/20 ML VIAL IV ONE (16:20)
[2019-02-13] MEDS ORDERED: ONDANSETRON HCL INJ/PF 4 MG/2 ML SDV ONE (16:20)
[2019-02-13] MEDS ORDERED: OXYCODONE-ACETAMINOPHEN 5-325 MG TABLET PO PRN ×2 (17:21)
[2019-02-13] MEDS ORDERED: FENTANYL CITRATE INJ/PF 100 MCG/2 ML AMPUL IV PRN ×3 (17:21)
[2019-02-13] MEDS ORDERED: MORPHINE SULFATE 10 MG/ML INJ IV PRN ×2 (17:21→20:00)
[2019-02-13] MEDS ORDERED: MEPERIDINE HCL/PF INJ 25 MG/1 ML DISP.SYRIN IV PRN (17:21)
[2019-02-13] MEDS ORDERED: DIPHENHYDRAMINE HCL 50 MG/ML VIAL IV PRN (17:21)
[2019-02-13] MEDS ORDERED: PROMETHAZINE HCL INJ 25 MG/1 ML VIAL IV PRN (17:21)
[2019-02-13] MEDS ORDERED: BUPIVACAINE HCL 0.25% /EPINEPHRINE INJ/PF 30 ML SDV ONE (17:25)
--- NOTE | 2019-02-13 18:12 | Operative Report ---
Operative Report DATE OF SURGERY: 02/13/19 PREOPERATIVE DIAGNOSIS: Right distal tib-fib fracture OPERATION: Open reduction internal fixation right distal tib-fib fracture SURGEON: CECILIA CABRERA ANESTHESIA: Spinal ESTIMATED BLOOD LOSS: Minimal PROCEDURE: The patient supine on the Abdullahi table the right lower extremity is prepped and draped for sterile fashion. The limb is elevated for exsanguination and tourniquet inflated to 350 torr. A median parapatellar incision was made at the distal aspect of the patella extending on the medial aspect of the patellar tendon. Blunt dissection was used carried incision down to the proximal tibia. A pin is placed and under fluoroscopic guidance across the tibial plateau. A combined reamer was then used to fashion an anterior opening. These were removed and a ball-tipped guide rods placed down the tibia across the fracture. The tibia was then reamed using flexible reamers until a 11.5 mm reamer is passed. Subsequently Bill titanium tibial nail 390 mm x 10 mm is passed over the ball-tipped guide isa to the appropriate depth. A single proximal interlock is placed. 3 distal interlocks were placed. It is deflated. The wound was irrigated. The closure was interrupted Vicryl followed by makenna. A sterile compressive dressing was applied and the patient's return to the PACU in satisfactory condition.
[2019-02-13] MEDS ORDERED: TRANEXAMIC ACID INJ/PF 1,000 MG/10 ML SDV IV ONE (19:53)
[2019-02-13] MEDS: IBUPROFEN 800 MG in NORMAL SALINE 250 ML IV SCH (22:45)
[2019-02-14] MEDS: HYDROMORPHONE HCL INJ/PF 2 MG/ML AMPULE IV PRN ×6 (00:17→23:03)
[2019-02-14] MEDS: CEFAZOLIN SODIUM 2 GM in DEXTROSE 5%-WATER 100 ML IV SCH ×2 (02:16→10:29)
[2019-02-14] MEDS: HYDRALAZINE HCL 50 MG TABLET PO SCH ×3 (05:04→21:26)
[2019-02-14] MEDS: IBUPROFEN 800 MG in NORMAL SALINE 250 ML IV SCH ×3 (05:06→21:26)
[2019-02-14] MEDS: RINGERS SOLUTION,LACTATED 1,000 ML IV PRN ×2 (05:08→18:47)
--- NOTE | 2019-02-14 07:18 | PDOC PROGRESS REPORT ---
Subjective Progress Note for:: 02/14/19 Reason For Visit: CLOSED NONDISPLACED DISTAL TIBIAL AND FIBULAR 59-year-old black male now postop day 1 status post intramedullary nailing of a right distal third tib-fib fracture. Patient complaining of discomfort. Physical Exam Vital Signs: Temp Pulse Resp BP Pulse Ox 36.8 C 105 H 18 156/69 H 98 02/14/19 00:45 02/14/19 00:45 02/14/19 00:45 02/14/19 00:45 02/14/19 00:45 Intake & Output 02/13/19 02/14/19 02/15/19 06:59 06:59 06:59 Intake Total 2120 4270 Output Total 1550 970 Balance 570 3300 Weight 81.5 kg Physical Exam: Middle-aged white male sitting in bed in no clear distress. Patient is alert, oriented, and appropriate. General appearance: PRESENT: no acute distress, mild distress Head exam: PRESENT: normocephalic Respiratory exam: PRESENT: unlabored Cardiovascular exam: PRESENT: RRR Pulses: PRESENT: +1 pedal pulses bilateral Vascular exam: PRESENT: normal capillary refill GI/Abdominal exam: PRESENT: soft Rectal exam: PRESENT: deferred Extremities exam: PRESENT: other - Knee compressive dressing in place. No evidence of drainage. Distal neurovascular examination is intact. Neurological exam: PRESENT: alert, awake, oriented to person, oriented to place, oriented to time, oriented to situation. ABSENT: motor sensory deficit Psychiatric exam: PRESENT: appropriate affect, normal mood. ABSENT: homicidal ideation, suicidal ideation Skin exam: PRESENT: dry, intact, warm. ABSENT: cyanosis, rash Results Laboratory Results: 02/10/19 16:29 02/10/19 16:29 Impressions: Chest X-Ray 02/10/19 00:00 IMPRESSION: NO ACUTE RADIOGRAPHIC FINDING IN THE CHEST. Knee X-Ray 02/10/19 15:34 IMPRESSION: COMMINUTED OBLIQUE FRACTURE OF THE PROXIMAL FIBULA. Status: Imported from PACS Assessment & Plan - Diagnosis (1) Right tibia and fibular fracture Is this a current diagnosis for this admission?: Yes Plan: He should be mobilized with physical therapy on a touchdown weightbearing restriction. - Time Time Spent with patient: 15-24 minutes Anticipated discharge: Home with Homehealth Within: within 24 hours
[2019-02-14 08:07] LABS: ANION GAP 9 (5-19); BLOOD UREA NITROGEN 5 mg/dL (7-20); CALCIUM 8.5 mg/dL (8.4-10.2); CARBON DIOXIDE 28 mmol/L (22-30); CHLORIDE 99 mmol/L (98-107); GLUCOSE 97 mg/dL (75-110); POTASSIUM 3.2 mmol/L (3.6-5.0)
--- NOTE | 2019-02-14 08:14 | RADIOLOGY REPORT (SQ) ---
EXAM DESCRIPTION: TIBIA FIBULA RIGHT; NO CHG FLUORO COMPLETED DATE/TIME: 02/13/2019 6:30 pm REASON FOR STUDY: HARDWARE PLACEMENT COMPARISON: 02/10/2019 FLUOROSCOPY TIME: 2.1 minutes Spot images saved to PACS. TECHNIQUE: Intra-operative images acquired during surgical procedure to evaluate progress. NUMBER OF IMAGES: 7 LIMITATIONS: None. FINDINGS: Fluoroscopy was provided for intraoperative procedure. Please refer to the operative repo rt further discussion. IMPRESSION: IMAGE(S) OBTAINED DURING PROCEDURE. COMMENT: Quality ID [id number]: Final reports for procedures using fluoroscopy that document radiation exp osure indices, or exposure time and number of fluorographic images (if radiation exposure indices are not available) Please consult full operative report of the attending physician for description of the procedure. TECHNICAL DOCUMENTATION: JOB ID: [id number] [employer]- All Rights Reserved Reading location - IP/workstation name: [email or web address]
--- NOTE | 2019-02-14 08:14 | RADIOLOGY REPORT (SQ) ---
EXAM DESCRIPTION: TIBIA FIBULA RIGHT; NO CHG FLUORO COMPLETED DATE/TIME: 02/13/2019 6:30 pm REASON FOR STUDY: HARDWARE PLACEMENT COMPARISON: 02/10/2019 FLUOROSCOPY TIME: 2.1 minutes Spot images saved to PACS. TECHNIQUE: Intra-operative images acquired during surgical procedure to evaluate progress. NUMBER OF IMAGES: 7 LIMITATIONS: None. FINDINGS: Fluoroscopy was provided for intraoperative procedure. Please refer to the operative repo rt further discussion. IMPRESSION: IMAGE(S) OBTAINED DURING PROCEDURE. COMMENT: Quality ID [id number]: Final reports for procedures using fluoroscopy that document radiation exp osure indices, or exposure time and number of fluorographic images (if radiation exposure indices are not available) Please consult full operative report of the attending physician for description of the procedure. TECHNICAL DOCUMENTATION: JOB ID: [id number] [employer]- All Rights Reserved Reading location - IP/workstation name: [email or web address]
[2019-02-14 08:47] LABS: HEMATOCRIT 28.3 % (37.9-51.0); HEMOGLOBIN 9.4 g/dL (13.5-17.0); MEAN CORPUSCULAR HEMOGLOBIN 29.8 pg (27.0-33.4); MEAN CORPUSCULAR VOLUME 90 fl (80-97); PLATELET COUNT 198 10^3/uL (150-450); RED BLOOD COUNT 3.14 10^6/uL (4.35-5.55); RED CELL DISTRIBUTION WIDTH 14.4 % (11.5-14.0); WHITE BLOOD COUNT 12.3 10^3/uL (4.0-10.5)
[2019-02-14 08:59] LABS: ABSOLUTE LYMPHOCYTES# (MANUAL) 0.6 10^3/uL (0.5-4.7); ABSOLUTE MONOCYTES # (MANUAL) 1.2 10^3/uL (0.1-1.4); BASOPHILS % (MANUAL) 0 % (0-2); EOSINOPHILS % (MANUAL) 1 % (0-6); LYMPHOCYTES % (MANUAL) 5 % (13-45); MONOCYTES % (MANUAL) 10 % (3-13); SEGMENTED NEUTROPHILS % (MAN) 84 % (42-78); TOTAL CELLS COUNTED 100
[2019-02-14 09:00] LABS: ANISOCYTOSIS SLIGHT; PLATELET COMMENT ADEQUATE; POLYCHROMASIA SLIGHT
[2019-02-14] MEDS: THIAMINE HCL 100 MG TABLET PO SCH (09:49)
[2019-02-14] MEDS: ATENOLOL 50 MG TABLET PO SCH (09:49)
[2019-02-14] MEDS: AMLODIPINE BESYLATE 10 MG TABLET PO SCH (09:49)
[2019-02-14] MEDS: ENOXAPARIN SODIUM INJ 40 MG/0.4 ML DISP.SYRIN SUBCUT SCH (09:50)
[2019-02-14] MEDS: FOLIC ACID 1 MG TABLET PO SCH (09:50)
[2019-02-14] MEDS: FAMOTIDINE 20 MG TABLET PO SCH ×2 (09:50→21:26)
[2019-02-14] MEDS: POTASSI CL 20 MEQ/50 ML RIDER 20 MEQ/50 ML RTUPB IV SCH ×2 (14:33→15:52)
--- NOTE | 2019-02-14 16:04 | Progress Note Acknowledgement ---
Progress Note Acknowledgement Progess Note Acknowledgement: I, the undersigned member of the medical staff with appropriate privileges and with supervisory authority over [ PAC ], a dependent practice allied health professional, acknowledge that I have reviewed the progress notes entered on this patient, and in my professional judgment believe that the assessment made and/or any care evidenced was appropriate
--- NOTE | 2019-02-14 16:08 | PDOC PROGRESS REPORT ---
Subjective Progress Note for:: 02/14/19 Subjective:: 9-year-old black male was admitted to the hospital 4 days ago for fractured right lower extremity graft patient on Toprol and HCTZ hemoglobin on admission 14.2 now 9.4 patient has had surgery potassium slightly low today at 3.2 patient in good spirits Reason For Visit: CLOSED NONDISPLACED DISTAL TIBIAL AND FIBULAR Physical Exam Vital Signs: Temp Pulse Resp BP Pulse Ox 97.9 F 99 16 134/67 H 92 02/14/19 14:50 02/14/19 14:50 02/14/19 14:50 02/14/19 14:50 02/14/19 14:50 Intake & Output 02/13/19 02/14/19 02/15/19 06:59 06:59 06:59 Intake Total 2120 4270 383 Output Total 1550 970 Balance 570 3300 383 Weight 81.5 kg General appearance: PRESENT: no acute distress, well-developed, well-nourished Head exam: PRESENT: atraumatic, normocephalic Respiratory exam: PRESENT: clear to auscultation edmond. ABSENT: rales, rhonchi, wheezes Cardiovascular exam: PRESENT: RRR. ABSENT: diastolic murmur, rubs, systolic murmur Extremities exam: PRESENT: other - Deferred to Ortho sign of drainage or bleeding Psychiatric exam: PRESENT: appropriate affect, normal mood. ABSENT: homicidal ideation, suicidal ideation Results Laboratory Results: 02/14/19 06:34 02/14/19 06:34 02/14/19 02/14/19 06:34 06:34 WBC 12.3 H RBC 3.14 L Hgb 9.4 L Hct 28.3 L MCV 90 MCH 29.8 MCHC 33.0 RDW 14.4 H Plt Count 198 Seg Neutrophils % Not Reportable Lymphocytes % Not Reportable Monocytes % Not Reportable Eosinophils % Not Reportable Basophils % Not Reportable Absolute Neutrophils Not Reportable Absolute Lymphocytes Not Reportable Absolute Monocytes Not Reportable Absolute Eosinophils Not Reportable Absolute Basophils Not Reportable Sodium 135.6 L Potassium 3.2 L Chloride 99 Carbon Dioxide 28 Anion Gap 9 BUN 5 L Creatinine 0.67 Est GFR ( Amer) > 60 Est GFR (Non-Af Amer) > 60 Glucose 97 Calcium 8.5 Impressions: Chest X-Ray 02/10/19 00:00 IMPRESSION: NO ACUTE RADIOGRAPHIC FINDING IN THE CHEST. Knee X-Ray 02/10/19 15:34 IMPRESSION: COMMINUTED OBLIQUE FRACTURE OF THE PROXIMAL FIBULA. Fluoroscopy 02/13/19 00:00 IMPRESSION: IMAGE(S) OBTAINED DURING PROCEDURE. Tibia/Fibula X-Ray 02/13/19 00:00 IMPRESSION: IMAGE(S) OBTAINED DURING PROCEDURE. Assessment and Plan - Diagnosis (1) Hypertension Qualifiers: Hypertension type: essential hypertension Qualified Code(s): I10 - Essential (primary) hypertension Is this a current diagnosis for this admission?: Yes Plan: Reportedly patient has allergy to lisinopril. We will start him on metoprolol and hydrochlorothiazide. 02/14/2019 patient currently on Toprol and HCTZ pressures are fairly well controlled 134/67 today (2) Right tibia and fibular fracture Is this a current diagnosis for this admission?: Yes Plan: Patient scheduled for procedure this morning. 02/14/2019 so has seen the patient, he had a procedure done yesterday with post intramedullary nailing of the right distal tibial. Doing well from surgery - Time Time Spent with patient: 25-34 minutes
[2019-02-15] MEDS: IBUPROFEN 800 MG in NORMAL SALINE 250 ML IV SCH ×2 (06:01→13:23)
[2019-02-15] MEDS: HYDRALAZINE HCL 50 MG TABLET PO SCH ×3 (06:02→21:54)
--- NOTE | 2019-02-15 07:12 | PDOC DISCHARGE SUMMARY ---
General - Admit/Disc Date/PCP Admission Date/Primary Care Provider: 02/10/19 16:31 [facility] Discharge Date: 02/15/19 - Discharge Diagnosis (1) Right tibia and fibular fracture Is this a current diagnosis for this admission?: Yes Summary: Patient is a 59-year-old black male who stepped in the home and sustained a right lower extremity injury. He was brought to the emergency room and a displaced spiral distal right tib-fib fracture was identified. He was splinted. He was taken to the operating room on Wednesday and underwent an intramedullary fixation which he tolerated without complication. He was seen by physical therapy on postop day 1 and begun on touchdown weightbearing restriction which went well. - Additional Information Resuscitation Status: Full Code Discharge Diet: As Tolerated, Regular Discharge Activity: Balance Activity w/Rest, No tub bath Home Medications: Amlodipine Besylate [Norvasc 5 mg Tablet] 10 mg PO DAILY 11/24/11 Allopurinol [Zyloprim 300 mg Tablet] 300 mg PO DAILY 01/16/18 Cholecalciferol (Vitamin D3) [Cholecalciferol] 1 gm MC BID 01/16/18 Colchicine [Colchicine 0.6 mg Tablet] 0.6 mg PO DAILYP PRN 01/16/18 Gabapentin 300 mg PO BIDP PRN 01/16/18 Hydralazine HCl 50 mg PO TID 01/16/18 Melatonin 5 mg PO PRN PRN 01/16/18 Methocarbamol 500 mg PO TID PRN 01/16/18 Naproxen 500 mg PO DAILYP PRN 01/16/18 Atenolol [Tenormin] 25 mg PO DAILY 02/10/19 Additional Information: Patient being discharged on oxycodone and enteric-coated aspirin History of Present Illness History of Present Illness: ROSANA MATSON is a 59 year old male As above Hospital Course Hospital Course: Patient is admitted and taken to the operating room on Wednesday the . He undergoes uncomplicated intramedullary fixation. Is returned to floor in satisfactory condition. He makes limited progress with physical therapy on postop day 1 but feels ready for discharge on postop day 2. Pain is well controlled. Physical Exam Vital Signs: Temp Pulse Resp BP Pulse Ox 37.1 C 96 17 143/70 H 94 02/14/19 20:10 02/14/19 20:10 02/14/19 20:10 02/14/19 20:10 02/14/19 20:10 Intake & Output 02/14/19 02/15/19 02/16/19 06:59 06:59 06:59 Intake Total 4270 2637 Output Total 970 1100 Balance 3300 1537 Weight 81.5 kg Physical Exam: Multiply thin middle-aged black male minor if any distress. The patient is a lert, oriented, and appropriate. General appearance: PRESENT: no acute distress Head exam: PRESENT: normocephalic Respiratory exam: PRESENT: unlabored Cardiovascular exam: PRESENT: RRR Vascular exam: PRESENT: normal capillary refill GI/Abdominal exam: PRESENT: soft Rectal exam: PRESENT: deferred Extremities exam: PRESENT: other - Right lower extremity splint is in place. There is brisk capillary refill in the great toe, active flexion extension of the great toe, and sensory examination intact to light touch. Neurological exam: PRESENT: alert, awake, oriented to person, oriented to place, oriented to time, oriented to situation. ABSENT: motor sensory deficit Psychiatric exam: PRESENT: appropriate affect, normal mood. ABSENT: homicidal ideation, suicidal ideation Skin exam: PRESENT: dry, intact, warm. ABSENT: cyanosis, rash Results Laboratory Results: 02/14/19 06:34 02/14/19 06:34 02/14/19 02/14/19 06:34 06:34 WBC 12.3 H RBC 3.14 L Hgb 9.4 L Hct 28.3 L MCV 90 MCH 29.8 MCHC 33.0 RDW 14.4 H Plt Count 198 Seg Neutrophils % Not Reportable Lymphocytes % Not Reportable Monocytes % Not Reportable Eosinophils % Not Reportable Basophils % Not Reportable Absolute Neutrophils Not Reportable Absolute Lymphocytes Not Reportable Absolute Monocytes Not Reportable Absolute Eosinophils Not Reportable Absolute Basophils Not Reportable Sodium 135.6 L Potassium 3.2 L Chloride 99 Carbon Dioxide 28 Anion Gap 9 BUN 5 L Creatinine 0.67 Est GFR ( Amer) > 60 Est GFR (Non-Af Amer) > 60 Glucose 97 Calcium 8.5 Impressions: Chest X-Ray 02/10/19 00:00 IMPRESSION: NO ACUTE RADIOGRAPHIC FINDING IN THE CHEST. Knee X-Ray 02/10/19 15:34 IMPRESSION: COMMINUTED OBLIQUE FRACTURE OF THE PROXIMAL FIBULA. Fluoroscopy 02/13/19 00:00 IMPRESSION: IMAGE(S) OBTAINED DURING PROCEDURE. Tibia/Fibula X-Ray 02/13/19 00:00 IMPRESSION: IMAGE(S) OBTAINED DURING PROCEDURE. Status: Imported from PACS Qualifiers - * PATIENT BEING DISCHARGED WITH ANY OF THE FOLLOWING DIAGNOSIS: No VTE patient discharged on overlapping Therapy?: Yes Acute Heart Failure - Is this a Heart Failure Patient?: No Plan Discharge Plan: Patient be discharged with home health services and DME on a touchdown weightbearing restriction on the right lower extremity. Follow-up with Dr. Garcia [facility] for surgery in 10 to 14 days.
[2019-02-15] MEDS: FAMOTIDINE 20 MG TABLET PO SCH ×2 (09:15→21:54)
[2019-02-15] MEDS: AMLODIPINE BESYLATE 10 MG TABLET PO SCH (09:16)
[2019-02-15] MEDS: FOLIC ACID 1 MG TABLET PO SCH (09:16)
[2019-02-15] MEDS: THIAMINE HCL 100 MG TABLET PO SCH (09:16)
[2019-02-15] MEDS: ATENOLOL 50 MG TABLET PO SCH (09:16)
[2019-02-15] MEDS: ENOXAPARIN SODIUM INJ 40 MG/0.4 ML DISP.SYRIN SUBCUT SCH (09:17)
[2019-02-15] MEDS: OXYCODONE HCL IR 5 MG TABLET PO PRN (13:22)
[2019-02-16] MEDS: HYDRALAZINE HCL 50 MG TABLET PO SCH ×3 (06:03→21:08)
[2019-02-16] MEDS: OXYCODONE HCL IR 5 MG TABLET PO PRN ×3 (06:09→19:56)
[2019-02-16] MEDS: FAMOTIDINE 20 MG TABLET PO SCH ×2 (09:36→21:07)
[2019-02-16] MEDS: FOLIC ACID 1 MG TABLET PO SCH (09:36)
[2019-02-16] MEDS: THIAMINE HCL 100 MG TABLET PO SCH (09:36)
[2019-02-16] MEDS: ENOXAPARIN SODIUM INJ 40 MG/0.4 ML DISP.SYRIN SUBCUT SCH (09:36)
[2019-02-16] MEDS: AMLODIPINE BESYLATE 10 MG TABLET PO SCH (09:36)
[2019-02-16] MEDS: ATENOLOL 50 MG TABLET PO SCH (09:37)
[2019-02-17] MEDS: OXYCODONE HCL IR 5 MG TABLET PO PRN (04:44)
[2019-02-17] MEDS: HYDRALAZINE HCL 50 MG TABLET PO SCH (05:25)
--- NOTE | 2019-02-17 06:34 | PDOC PROGRESS REPORT ---
Subjective Progress Note for:: 02/17/19 Reason For Visit: CLOSED NONDISPLACED DISTAL TIBIAL AND FIBULAR 59-year-old black male postop day 4 status post intramedullary fixation of a distal third tib-fib fracture Physical Exam Vital Signs: Temp Pulse Resp BP Pulse Ox 36.9 C 98 15 151/77 H 94 02/16/19 23:45 02/16/19 23:45 02/16/19 23:45 02/16/19 23:45 02/16/19 23:45 Intake & Output 02/15/19 02/16/19 02/17/19 06:59 06:59 06:59 Intake Total 2637 1620 836 Output Total 1100 1000 900 Balance 1537 620 -64 Weight 79 kg 80.6 kg Extremities exam: PRESENT: other - Extremity splint with small amount of old drainage. Still neurovascular examination is intact. Results Laboratory Results: 02/14/19 06:34 02/14/19 06:34 Impressions: Chest X-Ray 02/10/19 00:00 IMPRESSION: NO ACUTE RADIOGRAPHIC FINDING IN THE CHEST. Knee X-Ray 02/10/19 15:34 IMPRESSION: COMMINUTED OBLIQUE FRACTURE OF THE PROXIMAL FIBULA. Fluoroscopy 02/13/19 00:00 IMPRESSION: IMAGE(S) OBTAINED DURING PROCEDURE. Tibia/Fibula X-Ray 02/13/19 00:00 IMPRESSION: IMAGE(S) OBTAINED DURING PROCEDURE. Status: Imported from PACS Assessment & Plan - Diagnosis (1) Right tibia and fibular fracture Is this a current diagnosis for this admission?: Yes Plan: Awaiting discharge arrangements. Follow-up with Dr. Garcia [facility] for surgery in 2 weeks for staple removal.
[2019-02-17] MEDS: THIAMINE HCL 100 MG TABLET PO SCH (09:19)
[2019-02-17] MEDS: FOLIC ACID 1 MG TABLET PO SCH (09:19)
[2019-02-17] MEDS: AMLODIPINE BESYLATE 10 MG TABLET PO SCH (09:19)
[2019-02-17] MEDS: FAMOTIDINE 20 MG TABLET PO SCH (09:19)
[2019-02-17] MEDS: ATENOLOL 50 MG TABLET PO SCH (09:19)
[2019-02-17] MEDS: ENOXAPARIN SODIUM INJ 40 MG/0.4 ML DISP.SYRIN SUBCUT SCH (09:20)
[2019-02-17 09:52] VITALS: BP 121/59
== END 2019-02-17 11:14 | disposition home health service (06) | DRG 494 ==
LOC: ER 14:47 → EH 16:31 → 4N 23:09
PROVIDERS: ADMIT Internal Medicine; ATTEND Internal Medicine
PROC: 0QSG04Z Reposition Right Tibia with Internal Fixation Device, Open Approach (ICD-10-PCS; 2019-02-13)
PROC: 0QSJ04Z Reposition Right Fibula with Internal Fixation Device, Open Approach (ICD-10-PCS; principal; 2019-02-13 16:30)
DX: S82.201A Unspecified fracture of shaft of right tibia, initial encounter for closed fracture (principal); S82.401A Unspecified fracture of shaft of right fibula, initial encounter for closed fracture; I10 Essential (primary) hypertension; F17.210 Nicotine dependence, cigarettes, uncomplicated; W17.2XXA Fall into hole, initial encounter; Y93.89 Activity, other specified; Y92.89 Other specified places as the place of occurrence of the external cause
CPT/HCPCS: 01392; 36415; 71045; 80048; 80053; 85025; 85610; 85730; 86850; 86900; 86901; 93005; 93010; 96374; 96375; 99291; C1713; C1769; J0690; J1170; J1650; J1741; J2250; J2270; J2405; J2704; J3480; J3490; J7030; J7050; J7060; J7120